=== PATIENT | male | born 1965 | race American Indian/Alaskan Native ===

== ENCOUNTER 2019-07-10 17:09 | Emergency (ER) | payer SELFPAY ==
[2019-07-10] MEDS ORDERED: THERMAZENE 50 GRAM TP ONE (17:28)
[2019-07-10] MEDS ORDERED: BOOSTRIX IM ONE (17:28)
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
[2019-07-10 17:32] VITALS: BP 136/79
[2019-07-10] MEDS ORDERED: IBUPROFEN PO ONE (17:32)
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
== END 2019-07-10 23:41 ==
LOC: ED 17:09
DX: T22.151A Burn of first degree of right shoulder, initial encounter (principal); T22.152A Burn of first degree of left shoulder, initial encounter; I10 Essential (primary) hypertension; J44.9 Chronic obstructive pulmonary disease, unspecified; F17.200 Nicotine dependence, unspecified, uncomplicated; Z98.890 Other specified postprocedural states; Z93.3 Colostomy status; Z79.899 Other long term (current) drug therapy; Z88.0 Allergy status to penicillin; Z88.8 Allergy status to other drugs, medicaments and biological substances; X11.8XXA Contact with other hot tap-water, initial encounter; Y93.89 Activity, other specified; Y92.89 Other specified places as the place of occurrence of the external cause; Y99.8 Other external cause status
CPT/HCPCS: 90471; 90715; 99282